=== PATIENT | male | born 1960 | race Caucasian/White ===

== ENCOUNTER 2017-05-30 17:56 | Emergency (ER) | payer MEDICAID ==
[~2017-05-30] VITALS: Ht 180.3 cm; Wt 136.1 kg
[2017-05-30 18:08] VITALS: BP 152/88
== END 2017-05-30 19:23 | disposition left against medical advice (07) ==
LOC: ER 18:15
DX: H92.02 Otalgia, left ear (principal); Z53.21 Procedure and treatment not carried out due to patient leaving prior to being seen by health care provider

== ENCOUNTER 2017-06-06 16:54 | Inpatient (IN) | payer MEDICAID ==
[~2017-06-06] VITALS: Ht 180.3 cm; Wt 148.9 kg
[2017-06-06 18:07] LABS: Basophils # (auto) 0.1 uL; Basophils % (auto) 0.5 % (0.0-2.0); CONDITION Y; Eosinophils # (auto) 0.1 uL; Eosinophils % (auto) 1.2 % (0.0-7.0); Hematocrit 51.5 % (41.0-53.0); Lymphocytes # (auto) 1.8 uL; Lymphocytes % (auto) 14.8 % (10.0-50.0); Mean Corpuscular Hemoglobin 29.9 pg (28.0-32.0); Mean Corpuscular Volume 90.3 fL (80.0-100.0); Monocytes # (auto) 1.1 uL; Monocytes % (auto) 9.2 % (0.0-12.0); Neutrophils % (auto) 74.3 % (37.0-80.0); Platelet Count (auto) 368 10^3/uL (140-450); SUSPECT SEE PRINTOUT; White Blood Cell 12.2 10^3/uL (4.4-10.8)
[2017-06-06 18:21] LABS: Albumin 3.9 g/dL (3.4-5.0); Alkaline Phosphatase 94 U/L (45-117); Anion Gap 10 (5-15); Aspartate Aminotransferase 18 U/L (15-37); Bilirubin, Total 0.5 mg/dL (0.2-1.0); Blood Urea Nitrogen 16 mg/dL (7-18); Calcium 9.4 mg/dL (8.5-10.1); Carbon Dioxide 21 mmol/L (21-32); Chloride 112 mmol/L (98-107); GFR African American 44 mL/min; GFR Non-African American 37 mL/min; Glucose 134 mg/dL (74-106); Magnesium 2.4 mg/dL (1.6-2.6); Potassium 3.5 mmol/L (3.5-5.1); Sodium 143 mmol/L (136-145); Total Protein 8.6 g/dL (6.4-8.2)
[2017-06-06] MEDS ORDERED: SODIUM CHLORIDE 0.9% 1,000 ML IV ONE (18:30)
[2017-06-06] MEDS: SODIUM CHLORIDE 0.9% 1,000 ML IV SCH (18:45)
[2017-06-06] MEDS ORDERED: LORazepam 0.5 MG TAB PO PRN (18:45)
[2017-06-06] MEDS ORDERED: HYDROcodone-ACET 5/325MG TAB PO PRN (18:45)
[2017-06-06] MEDS ORDERED: LOPERAMIDE HCL 2 MG CAP PO PRN (18:45)
[2017-06-06] MEDS ORDERED: ACETAMINOPHEN 500 MG TAB PO PRN (18:45)
[2017-06-06] MEDS ORDERED: ONDANSETRON HCL 4 MG/2 ML VIAL IV PRN (18:45)
[2017-06-06] MEDS ORDERED: PROMETHAZINE HCL 25 MG/ML 1ML IV PRN (18:45)
[2017-06-06] MEDS ORDERED: MORPHINE SULF INJ 2 MG/ML SYRINGE 1ML IV PRN (18:45)
[2017-06-06] MEDS ORDERED: TEMAZEPAM 15 MG CAP PO PRN (18:45)
[2017-06-06] MEDS ORDERED: cefTRIAXone 1GM/50ML D5W 50 ML IV ONE (19:45)
[2017-06-06] MEDS ORDERED: PANTOPRAZOLE 40 MG TAB PO ONE (19:45)
[2017-06-06 20:00] LABS: B-Type Natriuretic Peptide 2.34 pg/mL (0-100)
[2017-06-06 20:10] LABS: Temperature: 23.5 C (20.0-25.0)
[2017-06-06] MEDS: metroNIDAZOLE 500MG/100ML 100 ML IV SCH (21:02)
[2017-06-06 21:50] VITALS: BP 125/82
[2017-06-06 22:00] VITALS: BP 125/82
[2017-06-07] VITALS (8 sets, daily range): BP systolic 104–146; BP diastolic 64–102
[2017-06-07] MEDS: SODIUM CHLORIDE 0.9% 1,000 ML IV SCH ×2 (04:45→14:45)
[2017-06-07 05:46] LABS: Basophils # (auto) 0 uL; Basophils % (auto) 0.1 % (0.0-2.0); CONDITION Y; Eosinophils # (auto) 0.4 uL; Eosinophils % (auto) 4.1 % (0.0-7.0); Hematocrit 45.1 % (41.0-53.0); Hemoglobin 15.1 g/dL (13.5-17.5); Lymphocytes # (auto) 2.4 uL; Lymphocytes % (auto) 23.4 % (10.0-50.0); Mean Corpuscular Hemoglobin 30.1 pg (28.0-32.0); Mean Corpuscular Hgb Conc. 33.4 g/dL (32.0-36.0); Mean Corpuscular Volume 90.3 fL (80.0-100.0); Mean Platelet Volume 9.9 fL (7.4-10.4); Monocytes # (auto) 0.9 uL; Monocytes % (auto) 8.7 % (0.0-12.0); Neutrophils # (auto) 6.6 uL; Neutrophils % (auto) 63.7 % (37.0-80.0); Platelet Count (auto) 293 10^3/uL (140-450); Red Cell Distribution Width 14.9 % (11.6-16.0); White Blood Cell 10.3 10^3/uL (4.4-10.8)
[2017-06-07 06:01] LABS: Albumin 3.1 g/dL (3.4-5.0); BUN/Creatinine Ratio 10.7; Calcium 7.7 mg/dL (8.5-10.1); Potassium 3.5 mmol/L (3.5-5.1)
[2017-06-07 06:04] LABS: Bilirubin, Total 0.4 mg/dL (0.2-1.0); Total Protein 6.6 g/dL (6.4-8.2)
[2017-06-07] MEDS: metroNIDAZOLE 500MG/100ML 100 ML IV SCH ×3 (06:30→21:16)
[2017-06-07] MEDS ORDERED: PANTOPRAZOLE 40 MG TAB PO SCH (10:00)
[2017-06-07] MEDS: ASPirin-EC 81 mg tab PO SCH (10:22)
[2017-06-07] MEDS: cefTRIAXone 1GM/50ML D5W 50 ML IV SCH (10:23)
[2017-06-07] MEDS: PANTOPRAZOLE 40 MG TAB PO SCH (21:16)
[2017-06-08] VITALS (7 sets, daily range): BP systolic 102–137; BP diastolic 54–73
[2017-06-08] MEDS: SODIUM CHLORIDE 0.9% 1,000 ML IV SCH ×3 (00:45→20:45)
[2017-06-08] MEDS: metroNIDAZOLE 500MG/100ML 100 ML IV SCH ×3 (05:24→21:13)
[2017-06-08 06:16] LABS: Basophils # (auto) 0 uL; Basophils % (auto) 0.4 % (0.0-2.0); CONDITION Y; Eosinophils # (auto) 0.4 uL; Eosinophils % (auto) 5.4 % (0.0-7.0); Hematocrit 43.8 % (41.0-53.0); Lymphocytes # (auto) 1.6 uL; Mean Corpuscular Hemoglobin 30.9 pg (28.0-32.0); Mean Corpuscular Hgb Conc. 34.2 g/dL (32.0-36.0); Mean Corpuscular Volume 90.3 fL (80.0-100.0); Mean Platelet Volume 10.1 fL (7.4-10.4); Monocytes # (auto) 0.7 uL; Monocytes % (auto) 8.5 % (0.0-12.0); Neutrophils # (auto) 5.2 uL; Neutrophils % (auto) 65.7 % (37.0-80.0); Platelet Count (auto) 249 10^3/uL (140-450); Red Cell Distribution Width 14.6 % (11.6-16.0)
[2017-06-08 08:24] LABS: BUN/Creatinine Ratio 12.3; Bilirubin, Total 0.4 mg/dL (0.2-1.0); Calcium 7.7 mg/dL (8.5-10.1); Potassium 3.5 mmol/L (3.5-5.1); Total Protein 6.1 g/dL (6.4-8.2)
[2017-06-08 08:25] LABS: Albumin 2.9 g/dL (3.4-5.0)
[2017-06-08] MEDS: cefTRIAXone 1GM/50ML D5W 50 ML IV SCH (10:02)
[2017-06-08] MEDS: PANTOPRAZOLE 40 MG TAB PO SCH ×2 (10:02→21:13)
[2017-06-08] MEDS: ASPirin-EC 81 mg tab PO SCH (10:02)
[2017-06-08 22:44] LABS: Urine RBC None Seen /hpf (0 - 3)
[2017-06-08 22:51] LABS: Urine Bilirubin Negative (Negative); Urine Blood Negative /uL (Negative); Urine Color Yellow (Yellow); Urine Glucose Normal (Normal); Urine Ketone Negative (Negative); Urine Nitrite Negative (Negative); Urine Urobilinogen Normal (Negative)
[2017-06-09 05:24] VITALS: BP 140/90
[2017-06-09] MEDS: metroNIDAZOLE 500MG/100ML 100 ML IV SCH (05:27)
[2017-06-09] MEDS ORDERED: MIDAZOLAM HCL 5 MG/ML-1ML VIAL ONE (08:21)
[2017-06-09] MEDS ORDERED: SODIUM CHLORIDE LOCK 10 ML ONE (08:21)
[2017-06-09] MEDS ORDERED: LIDOCAINE VISCOUS 2% 15ML UD ONE (08:21)
[2017-06-09] MEDS ORDERED: diphenhdrAMINE HCL 50 MG/1 ML VL ONE (08:22)
[2017-06-09] MEDS ORDERED: fentaNYL CITRATE 100 MCG/2 ML VL ONE (08:22)
[2017-06-09 08:35] LABS: INR 0.99 (0.9-1.15); Partial Thromboplastin Time 26.6 sec (22.64-33.71); Prothrombin Time 10.8 sec (9.37-12.3)
[2017-06-09] MEDS: cefTRIAXone 1GM/50ML D5W 50 ML IV SCH (09:00)
[2017-06-09 09:45] VITALS: BP 138/89
[2017-06-09] MEDS: ASPirin-EC 81 mg tab PO SCH (10:58)
[2017-06-09] MEDS: PANTOPRAZOLE 40 MG TAB PO SCH (10:58)
[2017-06-09] MEDS: SODIUM CHLORIDE 0.9% 1,000 ML IV SCH (10:59)
== END 2017-06-09 11:50 | disposition home or self-care (01) | DRG 243 ==
LOC: EDBD 16:54 → ER 16:54 → TELE 16:55 → TELE-WESTW 21:19
PROVIDERS: ADMIT Nurse Practitioner Family; ATTEND Internal Medicine
PROC: 0DB68ZX Excision of Stomach, Via Natural or Artificial Opening Endoscopic, Diagnostic (ICD-10-PCS; 2017-06-09)
PROC: 0DB48ZX Excision of Esophagogastric Junction, Via Natural or Artificial Opening Endoscopic, Diagnostic (ICD-10-PCS; principal; 2017-06-09 08:58)
DX: K22.70 Barrett's esophagus without dysplasia (principal); I24.9 Acute ischemic heart disease, unspecified; Z68.42 Body mass index [BMI] 45.0-49.9, adult; E44.1 Mild protein-calorie malnutrition; E87.8 Other disorders of electrolyte and fluid balance, not elsewhere classified; E66.01 Morbid (severe) obesity due to excess calories; K52.9 Noninfective gastroenteritis and colitis, unspecified; I10 Essential (primary) hypertension; E78.5 Hyperlipidemia, unspecified; J45.909 Unspecified asthma, uncomplicated; E03.9 Hypothyroidism, unspecified; E86.0 Dehydration; F41.9 Anxiety disorder, unspecified; F31.9 Bipolar disorder, unspecified; H66.90 Otitis media, unspecified, unspecified ear; K40.90 Unilateral inguinal hernia, without obstruction or gangrene, not specified as recurrent; K57.30 Diverticulosis of large intestine without perforation or abscess without bleeding; Z86.73 Personal history of transient ischemic attack (TIA), and cerebral infarction without residual deficits; Z87.442 Personal history of urinary calculi; Z90.49 Acquired absence of other specified parts of digestive tract
CPT/HCPCS: 36415; 71020; 74176; 80053; 81001; 83036; 83735; 83880; 84443; 84484; 85025; 85610; 85730; 87040; 87045; 87493; 87899; 93005; 94761; 96361; 96374; J0696; J2250; J3490

== ENCOUNTER 2018-08-25 10:02 | Inpatient (IN) | payer MEDICAID ==
[~2018-08-25] VITALS: Ht 180.3 cm; Wt 83.0 kg
[2018-08-25 11:27] LABS: Basophils # (auto) 0.2 uL; Basophils % (auto) 0.9 % (0.0-2.0); Eosinophils # (auto) 0.1 uL; Eosinophils % (auto) 0.5 % (0.0-7.0); Hematocrit 50.7 % (41.0-53.0); Hemoglobin 17.1 g/dL (13.5-17.5); Lymphocytes # (auto) 1.6 uL; Lymphocytes % (auto) 9.4 % (10.0-50.0); Mean Corpuscular Hemoglobin 30.6 pg (28.0-32.0); Mean Corpuscular Hgb Conc. 33.7 g/dL (32.0-36.0); Mean Corpuscular Volume 90.9 fL (80.0-100.0); Monocytes # (auto) 1.2 uL; Monocytes % (auto) 6.9 % (0.0-12.0); Neutrophils # (auto) 14.4 uL; Neutrophils % (auto) 82.3 % (37.0-80.0); Nucleated Red Blood Cells % 0.1 %; Platelet Count (auto) 335 10^3/uL (140-450); Red Blood Cells 5.58 10^6/uL (4.5-5.90); Red Cell Distribution Width 13.8 % (11.8-14.3); White Blood Cell 17.5 10^3/uL (4.4-10.8)
[2018-08-25 11:51] LABS: Albumin 3.6 g/dL (3.4-5.0); Calcium 8.7 mg/dL (8.5-10.1); Potassium 3.3 mmol/L (3.5-5.1)
[2018-08-25 11:56] LABS: Bilirubin, Total 1.7 mg/dL (0.2-1.0); Total Protein 8.2 g/dL (6.4-8.2)
[2018-08-25] MEDS ORDERED: IBUPROFEN 800 MG TAB PO ONE (14:45)
[2018-08-25] MEDS ORDERED: ALLOPURINOL 300 MG TAB PO ONE (14:45)
[2018-08-25 14:55] LABS: Urine Bacteria NONE SEEN /hpf (None Seen); Urine Blood TRACE /uL (Negative); Urine Hyaline Cast MOD /lpf (0 - 2); Urine Mucus MANY (None Seen); Urine Specific Gravity 1.026 (1.001-1.035); Urine WBC 14 /hpf (0 - 3); Urine WBC Clumps PRESENT /hpf (None Seen)
[2018-08-25] MEDS ORDERED: FAMOTIDINE 20 MG TAB PO ONE (15:00)
[2018-08-25 15:49] LABS: Magnesium 2.1 mg/dL (1.6-2.6)
[2018-08-25 15:56] LABS: INR 0.99 (0.9-1.15); Partial Thromboplastin Time 32.3 sec (23.78-33.04); Prothrombin Time 10.6 sec (9.27-12.13)
[2018-08-25] MEDS ORDERED: VANCOMYCIN 1GM/250ML 250 ML IV ONE (17:00)
[2018-08-25] MEDS ORDERED: SODIUM CHLORIDE 0.9% 1,000 ML IV ONE (17:30)
[2018-08-25] MEDS ORDERED: IOHEXOL 350 MG/ML 100ML IJ ONE ×2 (17:40→18:14)
[2018-08-25] MEDS ORDERED: TEMAZEPAM 15 MG CAP PO PRN (22:15)
[2018-08-25] MEDS ORDERED: DOCUSATE SOD 100 MG CAP PO PRN (22:15)
[2018-08-25] MEDS ORDERED: ONDANSETRON HCL 4 MG/2 ML VIAL IV PRN (22:15)
[2018-08-25] MEDS: LEVOFLOXACIN 500MG 100 ML IV SCH (22:34)
[2018-08-26] MEDS: HYDROcodone-ACET 5/325MG TAB PO PRN ×3 (02:49→21:33)
[2018-08-26 04:07] LABS: Basophils # (auto) 0.1 uL; Basophils % (auto) 0.8 % (0.0-2.0); Eosinophils # (auto) 0.3 uL; Eosinophils % (auto) 1.7 % (0.0-7.0); Hematocrit 49.3 % (41.0-53.0); Hemoglobin 16.3 g/dL (13.5-17.5); Lymphocytes # (auto) 1.8 uL; Lymphocytes % (auto) 10.5 % (10.0-50.0); Mean Corpuscular Hemoglobin 30.4 pg (28.0-32.0); Mean Corpuscular Volume 92.2 fL (80.0-100.0); Monocytes # (auto) 1.5 uL; Neutrophils # (auto) 13.1 uL; Platelet Count (auto) 308 10^3/uL (140-450); Red Blood Cells 5.35 10^6/uL (4.5-5.90); Red Cell Distribution Width 13.4 % (11.8-14.3); White Blood Cell 16.8 10^3/uL (4.4-10.8)
[2018-08-26 04:27] LABS: Potassium 3.7 mmol/L (3.5-5.1)
[2018-08-26 04:34] LABS: Albumin 3.3 g/dL (3.4-5.0); BUN/Creatinine Ratio 11.7; Bilirubin, Total 1.2 mg/dL (0.2-1.0); Calcium 8.5 mg/dL (8.5-10.1); Total Protein 7.7 g/dL (6.4-8.2)
[2018-08-26 08:30] VITALS: BP 158/89
[2018-08-26 09:00] VITALS: BP 159/90
[2018-08-26] MEDS ORDERED: INFLUENZA QUAD 2018-2019 0.5 ML SYRG IM ONE (10:15)
[2018-08-26] MEDS ORDERED: PNEUMOCOCCAL VACC POLYS 25 MCG/0.5 ML VIAL IM ONE (10:15)
[2018-08-26] MEDS: IBUPROFEN 600 MG TAB PO SCH ×2 (10:51→21:33)
[2018-08-26] MEDS: LISINOPRIL 10 MG TAB PO SCH (10:52)
[2018-08-26] MEDS: ENOXAPARIN SOD 40 MG/0.4 ML SYRINGE SC SCH (10:52)
[2018-08-26] MEDS: LEVOFLOXACIN 500MG 100 ML IV SCH (10:53)
[2018-08-26] MEDS: METOPROLOL TARTRATE 25 MG TAB PO SCH ×2 (10:53→21:33)
[2018-08-26] MEDS: ALLOPURINOL 100 MG TAB PO SCH (10:53)
[2018-08-26] MEDS: FAMOTIDINE 20 MG TAB PO SCH ×2 (10:53→21:33)
[2018-08-26 13:00] VITALS: BP 137/96
[2018-08-26 17:00] VITALS: BP 110/73
[2018-08-26 22:00] VITALS: BP 157/71
[2018-08-27 06:00] VITALS: BP 101/69
[2018-08-27 08:15] VITALS: BP 114/76
[2018-08-27] MEDS: ALLOPURINOL 100 MG TAB PO SCH (09:48)
[2018-08-27] MEDS: FAMOTIDINE 20 MG TAB PO SCH (09:48)
[2018-08-27] MEDS: ENOXAPARIN SOD 40 MG/0.4 ML SYRINGE SC SCH (09:48)
[2018-08-27] MEDS: LISINOPRIL 10 MG TAB PO SCH (09:48)
[2018-08-27] MEDS: METOPROLOL TARTRATE 25 MG TAB PO SCH (09:48)
[2018-08-27] MEDS: IBUPROFEN 600 MG TAB PO SCH (09:52)
[2018-08-27 13:08] VITALS: BP 114/60
== END 2018-08-27 14:10 | disposition home or self-care (01) | DRG 720 ==
LOC: ER 10:02 → OVERFLOW 10:03 → WEST WING 08-26 08:30
PROVIDERS: ADMIT Nurse Practitioner; ATTEND Nurse Practitioner
DX: A41.9 Sepsis, unspecified organism (principal); N18.3 Chronic kidney disease, stage 3 (moderate); K76.0 Fatty (change of) liver, not elsewhere classified; E66.01 Morbid (severe) obesity due to excess calories; M77.12 Lateral epicondylitis, left elbow; E78.5 Hyperlipidemia, unspecified; N39.0 Urinary tract infection, site not specified; M10.022 Idiopathic gout, left elbow; M70.32 Other bursitis of elbow, left elbow; I12.9 Hypertensive chronic kidney disease with stage 1 through stage 4 chronic kidney disease, or unspecified chronic kidney disease; N32.0 Bladder-neck obstruction; K40.90 Unilateral inguinal hernia, without obstruction or gangrene, not specified as recurrent; K57.30 Diverticulosis of large intestine without perforation or abscess without bleeding; R31.0 Gross hematuria; Z82.49 Family history of ischemic heart disease and other diseases of the circulatory system; Z86.73 Personal history of transient ischemic attack (TIA), and cerebral infarction without residual deficits; Z68.25 Body mass index [BMI] 25.0-25.9, adult; Z23 Encounter for immunization; Z87.442 Personal history of urinary calculi; Z90.49 Acquired absence of other specified parts of digestive tract; Y93.89 Activity, other specified
CPT/HCPCS: 36415; 36600; 71046; 71260; 73080; 74177; 76775; 80053; 81001; 82805; 83735; 83880; 84443; 84484; 84550; 85025; 85379; 85610; 85730; 87040; 90674; 93005; 96361; 96365; J1956

== ENCOUNTER 2019-03-08 15:09 | Inpatient (IN) | payer MEDICAID | END 2019-03-09 15:05 | disposition home or self-care (01) | LOC: ER 15:09 → TELE 17:10 → TELE-EAST 19:55 | DX: I13.0 Hypertensive heart and chronic kidney disease with heart failure and stage 1 through stage 4 chronic kidney disease, or unspecified chronic kidney disease (principal); N18.9 Chronic kidney disease, unspecified; I50.9 Heart failure, unspecified ==

== ENCOUNTER 2022-04-22 15:31 | Inpatient (IN) | payer MEDICAID ==
[~2022-04-22] VITALS: Ht 180.3 cm; Wt 151.5 kg
[~2022-04-22 15:31] MED LIST: ARIP1TAB5 PO; DILT40TA PO; HYDR25TA5 PO; LEV25T PR; LISI-716 PO; MET25T PO; OME20T PO
[2022-04-22 16:32] LABS: Basophils # (auto) 0.1 10 ^3/uL (0-0.2); Basophils % (auto) 1.1 % (0.0-2.0); Eosinophils # (auto) 0.4 10 ^3/uL (0-0.8); Eosinophils % (auto) 2.7 % (0.0-7.0); Hematocrit 48.6 % (41.0-53.0); Hemoglobin 16.7 g/dL (13.5-17.5); Lymphocytes # (auto) 2.4 10 ^3/uL (0.4-5.4); Lymphocytes % (auto) 18.1 % (10.0-50.0); Mean Corpuscular Hemoglobin 31.1 pg (28.0-32.0); Mean Corpuscular Hgb Conc. 34.4 g/dL (32.0-36.0); Mean Corpuscular Volume 90.2 fL (80.0-100.0); Monocytes % (auto) 7.3 % (0.0-12.0); Neutrophils # (auto) 9.3 10 ^3/uL (1.6-8.6); Neutrophils % (auto) 70.8 % (37.0-80.0); Red Blood Cells 5.38 10^6/uL (4.5-5.90); Red Cell Distribution Width 13.5 % (11.8-14.3); White Blood Cell 13.2 10^3/uL (4.4-10.8)
[2022-04-22 16:52] LABS: Albumin 3.7 g/dL (3.4-5.0); BUN/Creatinine Ratio 7.8; Calcium 8.9 mg/dL (8.5-10.1); Potassium 4.1 mmol/L (3.5-5.1)
[2022-04-22 16:54] LABS: Bilirubin, Total 0.6 mg/dL (0.2-1.0); Total Protein 7.6 g/dL (6.4-8.2)
[2022-04-22] MEDS ORDERED: SODIUM CHLORIDE 0.9% 500 ML IV ONE (17:45)
[2022-04-22] MEDS ORDERED: ACETAMINOPHEN 325 MG TAB PO PRN (18:15)
[2022-04-22] MEDS ORDERED: HYDROcodone-ACET 5/325MG TAB PO PRN (18:15)
[2022-04-22] MEDS ORDERED: DEXTROSE (50%) 50ML SYRG IV PRN (18:15)
[2022-04-22] MEDS ORDERED: MORPHINE SULFATE INJ 2 MG/ml SYRG IV PRN ×2 (18:15)
[2022-04-22] MEDS ORDERED: ONDANSETRON HCL 4 MG/2 ML VIAL IV PRN (18:15)
[2022-04-22] MEDS ORDERED: NITROGLYCERIN 0.4 MG SL TAB SL PRN (18:15)
[2022-04-22 18:25] LABS: Lactic Acid w/Reflex 2.2 mmol/L (0.4-2.0)
[2022-04-22] MEDS ORDERED: SODIUM CHLORIDE 0.9% 500 ML IV PRN (20:30)
[2022-04-22] MEDS: HEPARIN SODIUM (PORCINE) 5000 UNITS/ML 1ML VIAL IV SCH (22:46)
[2022-04-22] MEDS: InsuLIN REG 1unit/0.01ml Soln (100units/ml) SC SCH (22:46)
[2022-04-22] MEDS: ACCU-CHEK COMFORT CURVE STRIP VI SCH (22:47)
[2022-04-23 07:11] LABS: Basophils # (auto) 0.1 10 ^3/uL (0-0.2); Basophils % (auto) 0.8 % (0.0-2.0); Eosinophils # (auto) 0.3 10 ^3/uL (0-0.8); Eosinophils % (auto) 3.3 % (0.0-7.0); Hematocrit 45.5 % (41.0-53.0); Hemoglobin 16.1 g/dL (13.5-17.5); Lymphocytes # (auto) 2.3 10 ^3/uL (0.4-5.4); Lymphocytes % (auto) 22.4 % (10.0-50.0); Mean Corpuscular Hemoglobin 31.8 pg (28.0-32.0); Mean Corpuscular Hgb Conc. 35.4 g/dL (32.0-36.0); Mean Corpuscular Volume 89.8 fL (80.0-100.0); Monocytes # (auto) 0.9 10 ^3/uL (0-1.3); Monocytes % (auto) 8.3 % (0.0-12.0); Neutrophils # (auto) 6.7 10 ^3/uL (1.6-8.6); Neutrophils % (auto) 65.2 % (37.0-80.0); Nucleated Red Blood Cells % 0.1 %; Red Blood Cells 5.07 10^6/uL (4.5-5.90); Red Cell Distribution Width 13.2 % (11.8-14.3); White Blood Cell 10.3 10^3/uL (4.4-10.8)
[2022-04-23] MEDS: ACCU-CHEK COMFORT CURVE STRIP VI SCH ×4 (07:21→22:12)
[2022-04-23] MEDS: InsuLIN REG 1unit/0.01ml Soln (100units/ml) SC SCH ×4 (07:21→22:23)
[2022-04-23 08:06] LABS: Alanine Aminotransferase 117 U/L (16-61); Albumin 3.2 g/dL (3.4-5.0); Alkaline Phosphatase 100 U/L (45-117); Anion Gap 17 (5-15); Aspartate Aminotransferase 63 U/L (15-37); BUN/Creatinine Ratio 9.3; Bilirubin, Total 0.6 mg/dL (0.2-1.0); Blood Urea Nitrogen 40 mg/dL (7-18); Calcium 8.1 mg/dL (8.5-10.1); Carbon Dioxide 19 mmol/L (21-32); Chloride 103 mmol/L (98-107); Cholesterol 140 mg/dL (< 200); GFR African American 18 mL/min; GFR Non-African American 15 mL/min; Glucose 202 mg/dL (74-106); HDL Cholesterol 22 mg/dL (40-59); LDL Cholesterol 94 mg/dL (< 100); Potassium 3.5 mmol/L (3.5-5.1); Sodium 139 mmol/L (136-145); Total Protein 6.9 g/dL (6.4-8.2); Triglycerides 311 mg/dL (< 150)
[2022-04-23] MEDS: SODIUM CHLORIDE 0.9% 1,000 ML IV SCH ×3 (08:17→22:14)
[2022-04-23] MEDS: PIPERACILLIN-TAZOB 3.375GM 100 ML IV SCH ×2 (08:17→16:38)
[2022-04-23] MEDS: LEVOTHYROXINE SODIUM 25 MCG TAB PO SCH (09:42)
[2022-04-23] MEDS: HEPARIN SODIUM (PORCINE) 5000 UNITS/ML 1ML VIAL IV SCH ×2 (09:43→22:17)
[2022-04-23] MEDS ORDERED: PANTOPRAZOLE 40 MG/10 ML VIAL INJ IV ONE (10:00)
[2022-04-23] MEDS ORDERED: CHLO25TA2 PO (15:32)
[2022-04-23] MEDS ORDERED: METF-370 PO (15:32)
[2022-04-23] MEDS ORDERED: LISI40TA11 PO (15:32)
[2022-04-23] MEDS ORDERED: LABE200T6 PO (15:32)
[2022-04-23] MEDS ORDERED: FAMO-12 PO (15:32)
[2022-04-23 17:00] VITALS: BP 116/77
[2022-04-23 22:00] VITALS: BP 103/67
[2022-04-24] MEDS: PIPERACILLIN-TAZOB 3.375GM 100 ML IV SCH ×3 (00:09→18:15)
[2022-04-24 05:00] VITALS: BP 124/76
[2022-04-24] MEDS: ACCU-CHEK COMFORT CURVE STRIP VI SCH ×4 (05:51→21:19)
[2022-04-24] MEDS: InsuLIN REG 1unit/0.01ml Soln (100units/ml) SC SCH ×4 (05:54→21:37)
[2022-04-24 06:38] LABS: Basophils # (auto) 0 10 ^3/uL (0-0.2); Basophils % (auto) 0.4 % (0.0-2.0); Eosinophils # (auto) 0.3 10 ^3/uL (0-0.8); Eosinophils % (auto) 4.2 % (0.0-7.0); Hematocrit 42.3 % (41.0-53.0); Hemoglobin 14.8 g/dL (13.5-17.5); Lymphocytes % (auto) 24.5 % (10.0-50.0); Mean Corpuscular Hemoglobin 31.4 pg (28.0-32.0); Mean Corpuscular Hgb Conc. 35.1 g/dL (32.0-36.0); Mean Corpuscular Volume 89.7 fL (80.0-100.0); Monocytes # (auto) 0.7 10 ^3/uL (0-1.3); Monocytes % (auto) 8.6 % (0.0-12.0); Neutrophils # (auto) 5.1 10 ^3/uL (1.6-8.6); Neutrophils % (auto) 62.3 % (37.0-80.0); Nucleated Red Blood Cells % 0.1 %; Red Blood Cells 4.71 10^6/uL (4.5-5.90); Red Cell Distribution Width 13.3 % (11.8-14.3); White Blood Cell 8.3 10^3/uL (4.4-10.8)
[2022-04-24 06:50] LABS: Calcium 8.2 mg/dL (8.5-10.1); Potassium 3.4 mmol/L (3.5-5.1)
[2022-04-24 06:54] LABS: BUN/Creatinine Ratio 11.8; Bilirubin, Total 0.6 mg/dL (0.2-1.0); Total Protein 6.5 g/dL (6.4-8.2)
[2022-04-24 08:00] VITALS: BP 104/81
[2022-04-24 09:00] VITALS: BP 104/81
[2022-04-24] MEDS: HEPARIN SODIUM (PORCINE) 5000 UNITS/ML 1ML VIAL IV SCH ×2 (09:55→21:37)
[2022-04-24] MEDS: PANTOPRAZOLE 40 MG/10 ML VIAL INJ IV SCH (09:57)
[2022-04-24] MEDS: SODIUM CHLORIDE 0.9% 1,000 ML IV SCH ×3 (09:58→22:30)
[2022-04-24] MEDS: LEVOTHYROXINE SODIUM 25 MCG TAB PO SCH (11:22)
[2022-04-24 13:00] VITALS: BP 144/85
[2022-04-24 17:00] VITALS: BP 133/88
[2022-04-24 22:00] VITALS: BP 121/85
[2022-04-25] MEDS: PIPERACILLIN-TAZOB 3.375GM 100 ML IV SCH ×3 (00:12→16:59)
[2022-04-25] MEDS: SODIUM CHLORIDE 0.9% 1,000 ML IV SCH ×2 (00:12→16:59)
[2022-04-25 05:00] VITALS: BP 142/69
[2022-04-25] MEDS: ACCU-CHEK COMFORT CURVE STRIP VI SCH ×4 (06:48→21:32)
[2022-04-25] MEDS: LEVOTHYROXINE SODIUM 25 MCG TAB PO SCH (06:48)
[2022-04-25] MEDS: InsuLIN REG 1unit/0.01ml Soln (100units/ml) SC SCH ×4 (06:51→21:29)
[2022-04-25 08:00] VITALS: BP 101/76
[2022-04-25 09:00] VITALS: BP 120/86
[2022-04-25] MEDS ORDERED: INSULIN LANTUS (GLARGINE) 1 /0.01ml (100units/ml) SC SCH (10:00)
[2022-04-25] MEDS: HEPARIN SODIUM (PORCINE) 5000 UNITS/ML 1ML VIAL IV SCH ×2 (10:05→21:29)
[2022-04-25] MEDS: PANTOPRAZOLE 40 MG/10 ML VIAL INJ IV SCH (10:05)
[2022-04-25] MEDS: INSULIN LANTUS (GLARGINE) 1 /0.01ml (100units/ml) SC SCH (10:05)
[2022-04-25 10:22] LABS: Calcium 8.3 mg/dL (8.5-10.1); Potassium 3.4 mmol/L (3.5-5.1)
[2022-04-25 10:25] LABS: BUN/Creatinine Ratio 15.9; Bilirubin, Total 0.4 mg/dL (0.2-1.0); Total Protein 6.6 g/dL (6.4-8.2)
[2022-04-25 13:00] VITALS: BP 129/83
[2022-04-25 14:35] LABS: Urine Bacteria NONE SEEN /hpf (None Seen); Urine Blood Negative /uL (Negative); Urine WBC 2 /hpf (0 - 3)
[2022-04-25 14:49] LABS: Protein, Urine 29.4 mg/dL (0.0-11.9)
[2022-04-25 17:00] VITALS: BP 113/50
[2022-04-25 22:00] VITALS: BP 127/90
[2022-04-26] MEDS: SODIUM CHLORIDE 0.9% 1,000 ML IV SCH ×3 (00:53→14:27)
[2022-04-26] MEDS: PIPERACILLIN-TAZOB 3.375GM 100 ML IV SCH ×2 (00:53→09:00)
[2022-04-26 05:00] VITALS: BP 117/79
[2022-04-26 06:04] LABS: Basophils # (auto) 0 10 ^3/uL (0-0.2); Basophils % (auto) 0.5 % (0.0-2.0); Eosinophils # (auto) 0.4 10 ^3/uL (0-0.8); Eosinophils % (auto) 4.7 % (0.0-7.0); Hematocrit 42.2 % (41.0-53.0); Hemoglobin 14.6 g/dL (13.5-17.5); Lymphocytes # (auto) 1.8 10 ^3/uL (0.4-5.4); Lymphocytes % (auto) 22.9 % (10.0-50.0); Mean Corpuscular Hemoglobin 31.2 pg (28.0-32.0); Mean Corpuscular Hgb Conc. 34.6 g/dL (32.0-36.0); Mean Corpuscular Volume 90.4 fL (80.0-100.0); Monocytes # (auto) 0.6 10 ^3/uL (0-1.3); Monocytes % (auto) 7.9 % (0.0-12.0); Red Blood Cells 4.67 10^6/uL (4.5-5.90); Red Cell Distribution Width 13.4 % (11.8-14.3); White Blood Cell 7.8 10^3/uL (4.4-10.8)
[2022-04-26] MEDS: InsuLIN REG 1unit/0.01ml Soln (100units/ml) SC SCH ×4 (06:26→22:41)
[2022-04-26] MEDS: ACCU-CHEK COMFORT CURVE STRIP VI SCH ×4 (06:26→22:37)
[2022-04-26] MEDS: LEVOTHYROXINE SODIUM 25 MCG TAB PO SCH (06:26)
[2022-04-26 06:29] LABS: Albumin 2.9 g/dL (3.4-5.0); Potassium 3.6 mmol/L (3.5-5.1)
[2022-04-26 06:35] LABS: BUN/Creatinine Ratio 13.7; Bilirubin, Total 0.4 mg/dL (0.2-1.0); Calcium 8.4 mg/dL (8.5-10.1); Magnesium 1.7 mg/dL (1.6-2.6); Total Protein 6.4 g/dL (6.4-8.2)
[2022-04-26 08:34] VITALS: BP 141/92
[2022-04-26] MEDS: PANTOPRAZOLE 40 MG/10 ML VIAL INJ IV SCH (09:00)
[2022-04-26] MEDS: HEPARIN SODIUM (PORCINE) 5000 UNITS/ML 1ML VIAL IV SCH (09:01)
[2022-04-26] MEDS: INSULIN LANTUS (GLARGINE) 1 /0.01ml (100units/ml) SC SCH (10:12)
[2022-04-26 13:09] VITALS: BP 156/46
[2022-04-26] MEDS: amLODIPine BESYLATE 5 MG TAB PO SCH (14:26)
[2022-04-26 17:21] VITALS: BP 145/94
[2022-04-26 22:00] VITALS: BP 153/93
[2022-04-26] MEDS: HEPARIN SODIUM (PORCINE) 5000 UNITS/ML 1ML VIAL SC SCH (22:41)
[2022-04-27] MEDS: SODIUM CHLORIDE 0.9% 1,000 ML IV SCH ×3 (00:41→18:20)
[2022-04-27 05:00] VITALS: BP 127/89
[2022-04-27] MEDS: LEVOTHYROXINE SODIUM 25 MCG TAB PO SCH (06:25)
[2022-04-27] MEDS: ACCU-CHEK COMFORT CURVE STRIP VI SCH ×4 (06:25→21:37)
[2022-04-27] MEDS: InsuLIN REG 1unit/0.01ml Soln (100units/ml) SC SCH ×4 (06:31→21:40)
[2022-04-27 09:00] VITALS: BP 159/99
[2022-04-27] MEDS: amLODIPine BESYLATE 5 MG TAB PO SCH (09:21)
[2022-04-27] MEDS: PANTOPRAZOLE 40 MG/10 ML VIAL INJ IV SCH (09:21)
[2022-04-27] MEDS: HEPARIN SODIUM (PORCINE) 5000 UNITS/ML 1ML VIAL SC SCH ×2 (09:38→21:44)
[2022-04-27] MEDS: PATIENTS OWN MEDICATION (Aripiprazole (Abilify) 10 MG) PO SCH (10:00)
[2022-04-27] MEDS: INSULIN LANTUS (GLARGINE) 1 /0.01ml (100units/ml) SC SCH (11:09)
[2022-04-27 12:29] LABS: BUN/Creatinine Ratio 13.9; Calcium 8.3 mg/dL (8.5-10.1); Potassium 3.7 mmol/L (3.5-5.1)
[2022-04-27 13:00] VITALS: BP 155/88
[2022-04-27 16:42] VITALS: BP 155/92
[2022-04-27 22:00] VITALS: BP 146/77
[2022-04-28 05:00] VITALS: BP 149/91
[2022-04-28] MEDS: SODIUM CHLORIDE 0.9% 1,000 ML IV SCH (05:27)
[2022-04-28] MEDS: InsuLIN REG 1unit/0.01ml Soln (100units/ml) SC SCH ×2 (06:32→11:38)
[2022-04-28] MEDS: ACCU-CHEK COMFORT CURVE STRIP VI SCH ×2 (06:32→11:36)
[2022-04-28] MEDS: LEVOTHYROXINE SODIUM 25 MCG TAB PO SCH (06:32)
[2022-04-28] MEDS: PANTOPRAZOLE 40 MG/10 ML VIAL INJ IV SCH (08:28)
[2022-04-28] MEDS: amLODIPine BESYLATE 5 MG TAB PO SCH (08:29)
[2022-04-28] MEDS: HEPARIN SODIUM (PORCINE) 5000 UNITS/ML 1ML VIAL SC SCH (08:36)
[2022-04-28] MEDS: PATIENTS OWN MEDICATION (Aripiprazole (Abilify) 10 MG) PO SCH (08:36)
[2022-04-28 09:00] VITALS: BP 159/92
[2022-04-28] MEDS ORDERED: CARVEDILOL 3.125 MG TAB PO SCH (10:00)
[2022-04-28] MEDS ORDERED: CAR3125T PO (10:45)
[2022-04-28] MEDS ORDERED: AML5T PO (10:45)
[2022-04-28] MEDS: INSULIN LANTUS (GLARGINE) 1 /0.01ml (100units/ml) SC SCH (11:38)
== END 2022-04-28 13:47 | disposition home health service (06) | DRG 469 ==
LOC: ER 15:31 → EDBD 15:31 → TELE 18:07 → TELE-WESTW 04-23 13:29
PROVIDERS: ADMIT Nurse Practitioner; ATTEND Nurse Practitioner
DX: N17.0 Acute kidney failure with tubular necrosis (principal); R65.11 Systemic inflammatory response syndrome (SIRS) of non-infectious origin with acute organ dysfunction; I13.0 Hypertensive heart and chronic kidney disease with heart failure and stage 1 through stage 4 chronic kidney disease, or unspecified chronic kidney disease; I95.9 Hypotension, unspecified; E11.22 Type 2 diabetes mellitus with diabetic chronic kidney disease; I50.9 Heart failure, unspecified; E87.6 Hypokalemia; I25.10 Atherosclerotic heart disease of native coronary artery without angina pectoris; K21.9 Gastro-esophageal reflux disease without esophagitis; E03.9 Hypothyroidism, unspecified; N18.9 Chronic kidney disease, unspecified; Z20.822 Contact with and (suspected) exposure to COVID-19; E78.5 Hyperlipidemia, unspecified; M10.9 Gout, unspecified; J44.9 Chronic obstructive pulmonary disease, unspecified; E66.01 Morbid (severe) obesity due to excess calories; Z90.49 Acquired absence of other specified parts of digestive tract; Z79.899 Other long term (current) drug therapy; Z83.3 Family history of diabetes mellitus; I69.354 Hemiplegia and hemiparesis following cerebral infarction affecting left non-dominant side; Z82.49 Family history of ischemic heart disease and other diseases of the circulatory system; Z87.442 Personal history of urinary calculi; Z68.42 Body mass index [BMI] 45.0-49.9, adult; Z79.84 Long term (current) use of oral hypoglycemic drugs; T44.7X5A Adverse effect of beta-adrenoreceptor antagonists, initial encounter
CPT/HCPCS: 36415; 71045; 76775; 80048; 80053; 80061; 81001; 82570; 82962; 83036; 83605; 83735; 83880; 84156; 84300; 84443; 84484; 85025; 93005; 93306; 96360; C9113; G0378; J1815; J2543